=== PATIENT | female | born 1945 | race African-American/Black ===

== ENCOUNTER 2016-09-03 23:17 | Inpatient (IN) | payer MEDICARE, OTHER ==
[~2016-09-03] VITALS: Ht 162.6 cm; Wt 104.8 kg
[2016-09-03 23:30] VITALS: BP 139/94
--- NOTE | 2016-09-03 23:30 | NUR ---
GPS ADMISSION NOTE, RECEIVED PATIENT FROM [facility]. PATIENT ARRIVED ON THIS UNIT A VIA STRETCHER 2 EMT ESCORTS. PATIENT ADMITTED ON A 5150 HOLD FOR GD. PER HOLD PATIENT IS DELUSIONAL, HAS OBSESSIONS WITH OBJECTS, AND CAN NOT IDENTIFY A VIABLE PLAN OF SELF CARE. PATIENT THE 5150 WAS REVIEWED AND THE DOCUMENTATION IN THE 5150 HOLD APPEARS TO REFLECT THE PRESENTATION OF THE PATIENT. UPON FACE TO FACE ASSESSMENT PATIENT IS CURRENTLY LYING IN BED AWAKE, HAS NO S/S OR COMPLAINTS OF PAIN AT THIS TIME. PATIENT IS DISPLAYING NO S/S OF APPARENT DISTRESS. PATIENT BREATHING IS UNLABORED WITH EQUAL RISE AND FALL OF THE CHEST. PATIENT IS ALERT AND ORIENTATED X 2 ON ROOM AIR. PATIENT HAS NO NEEDS AT THIS TIME. PATIENT IS NOTED TO BEING ANXIOUS, DISHEVELED, DISORGANIZED, COOPERATIVE, CONFUSED AT TIMES, GUARDED AND NEEDS REDIRECTION. PATIENT DENIES SUICIDE IDEATIONS AND HOMICIDAL IDEATIONS AT THIS TIME. PATIENT IS UNDER THE PSYCHIATRIC CARE OF DR MORALES AND THE MEDICAL CARE OF DR RAMÍREZ. PATIENT BELONGINGS WERE INVENTORIED AND CHECKED FOR CONTRABAND. ALL CONTRABAND REMOVED AND STORED IN PATIENT HALLWAY LOCKER. PATIENT ADVANCED DIRECTIVES PREFERENCE, IMMUNIZATIONS QUESTIONER, NECESSARY PAPERWORK, AND SKIN ASSESSMENT COMPLETED. PATIENT ORIENTATED TO ROOM, FLOOR, AND STAFF WITH ALL QUESTIONS ANSWERED. PATIENT EDUCATED ON THE USE OF THE CALL PHIPPS. PATIENT BED SIDE RAILS ARE UP X 2 FOR SAFETY. PATIENT BED IS LOCKED, LOW AND I WILL CONTINUE TO MONITOR THIS PATIENT Q 15 MIN WITH THE HELP OF STAFF TO MAINTAIN SAFETY.
[2016-09-04] MEDS ORDERED: LORAZEPAM 0.5 MG TABLET PO PRN
[2016-09-04] MEDS ORDERED: ACETAMINOPHEN 325 MG TABLET PO PRN
[2016-09-04] MEDS ORDERED: MAGNESIUM HYDROXIDE 30 ML UDC PO PRN
[2016-09-04] MEDS ORDERED: ALBU18HF2 INH (00:38)
[2016-09-04] MEDS ORDERED: FURO40TA5 PO (00:38)
[2016-09-04] MEDS ORDERED: TRIA1CAP6 PO (00:38)
[2016-09-04] MEDS ORDERED: ARIP15TA2 PO (00:38)
[2016-09-04] MEDS ORDERED: DIVA500T54 PO (00:38)
[2016-09-04] MEDS ORDERED: DIPH-530 PO (00:41)
[2016-09-04] MEDS ORDERED: CALC-838 PO (00:41)
[2016-09-04] MEDS ORDERED: ALBUTEROL FS 2.5 MG/3 ML VIAL.NEB NEB PRN (01:00)
[2016-09-04] MEDS ORDERED: hydrALAZINE HCL 10 MG TABLET PO PRN (02:00)
[2016-09-04] MEDS ORDERED: ALBUTEROL SULFATE 8 GM HFA.AER.AD NEB PRN (02:00)
[2016-09-04] MEDS ORDERED: Z GUARD REMEDY 2 OZ OINT TP PRN (05:30)
[2016-09-04 06:35] LABS: BASOPHILS % (AUTO) 0.4 % (0.0-2.0); EOSINOPHILS % (AUTO) 0.3 % (0.0-6.0); HEMATOCRIT 35 % (33-45); HEMOGLOBIN 11.5 g/dL (11.5-14.8); LYMPHOCYTES # (AUTO) 1.7 /CMM (0.8-4.8); LYMPHOCYTES % (AUTO) 37.3 % (20.0-44.0); MEAN CORPUSCULAR HEMOGLOBIN 27 PG (26.0-33.0); MEAN CORPUSCULAR HGB CONC 33 g/dl (31.0-36.0); MEAN CORPUSCULAR VOLUME 82 fL (82-100); MONOCYTES # (AUTO) 0.6 /CMM (0.1-1.30); MONOCYTES % (AUTO) 11.9 % (2.0-12.0); NEUTROPHILS # (AUTO) 2.3 /CMM (1.8-8.9); NEUTROPHILS % (AUTO) 50.1 % (43.0-81.0); PLATELET COUNT (AUTO) 206 /CMM (150-450); RED BLOOD CELL COUNT(AUTO) 4.27 MIL/uL (4.0-5.2); WHITE BLOOD COUNT (AUTO) 4.6 K/uL (4.3-11.0)
[2016-09-04 07:41] LABS: ALBUMIN 2.9 g/dL (3.4-5.0); BILIRUBIN,TOTAL 0.3 mg/dL (0.2-1.0); CALCIUM, SERUM 8.7 mg/dL (8.5-10.1); CREATININE 0.9 mg/dL (0.6-1.3); POTASSIUM 3.8 mmol/L (3.5-5.1); TOTAL PROTEIN, SERUM 6.9 g/dL (6.4-8.2)
[2016-09-04 07:43] LABS: CHOLESTEROL 191 mg/dL (<200); HDL CHOLESTEROL 85 mg/dL (40-60); LDL 92 mg/dL (0-99); TRIGLYCERIDES 34 mg/dL (30-150)
[2016-09-04 08:00] VITALS: BP 150/78
[2016-09-04] MEDS: MAG HYDROX/AL HYDROX/SIMETH 30 ML UDC PO PRN ×3 (08:36→21:25)
--- NOTE | 2016-09-04 08:36 | NUR ---
ADMINISTERED MAALOX 30 MG/ML PO PRN FOR ACID REFLUX, CONTINUED MONITORING.
[2016-09-04] MEDS: FUROSEMIDE 40 MG TABLET PO SCH (08:40)
[2016-09-04] MEDS: DIVALPROEX SODIUM 500 MG TABLET.DR PO SCH ×2 (08:41→21:25)
[2016-09-04] MEDS: TRIAMTERENE/HYDROCHLOROTHIAZID (37.5/25MG) 1 UDCAP PO SCH (08:47)
[2016-09-04] MEDS: ARIPIPRAZOLE 5 MG TABLET PO SCH ×2 (12:31→17:12)
[2016-09-04 16:00] VITALS: BP 152/95
--- NOTE | 2016-09-04 17:23 | NUR ---
ADMINISTERED MAALOX 30 MG/ML PO PRN FOR ACID REFLUX, ENCOURAGED TO KEEP HOB ELEVATED, CONTINUED MONITORING. AWARE OF.
[2016-09-04 20:00] VITALS: BP 148/79
[2016-09-04] MEDS ORDERED: ONDANSETRON 4 MG TAB.RAPDIS PO PRN (21:30)
[2016-09-04] MEDS ORDERED: ONDANSETRON 4 MG TAB.RAPDIS ONE (21:33)
--- NOTE | 2016-09-04 21:38 | NUR ---
GPS/RN-PATIENT VOMITED X1,MODERATE AMT.OF UNDIGESTED FOOD.INFORMED DR. RAMÍREZ,SHE ORDERED ZOFRAN 4MG.Q 6HRS,PRN.
[2016-09-05] MEDS: MAG HYDROX/AL HYDROX/SIMETH 30 ML UDC PO PRN ×2 (02:39→06:44)
[2016-09-05 08:00] VITALS: BP 107/66
[2016-09-05] MEDS: ASPIRIN 81 MG TAB.CHEW PO SCH (08:09)
[2016-09-05] MEDS: FUROSEMIDE 40 MG TABLET PO SCH (08:09)
[2016-09-05] MEDS: DIVALPROEX SODIUM 500 MG TABLET.DR PO SCH ×2 (08:10→21:08)
[2016-09-05] MEDS: TRIAMTERENE/HYDROCHLOROTHIAZID (37.5/25MG) 1 UDCAP PO SCH (08:10)
[2016-09-05] MEDS: ARIPIPRAZOLE 5 MG TABLET PO SCH ×2 (08:10→21:09)
[2016-09-05] MEDS: PANTOPRAZOLE 40 MG TABLET.DR PO SCH (08:11)
[2016-09-05 15:44] VITALS: BP 131/85
[2016-09-05 19:52] VITALS: BP 109/55
[2016-09-05] MEDS: TEMAZEPAM 7.5 MG CAPSULE PO PRN (21:09)
[2016-09-06 08:00] VITALS: BP 113/55
[2016-09-06] MEDS: TRIAMTERENE/HYDROCHLOROTHIAZID (37.5/25MG) 1 UDCAP PO SCH (08:24)
[2016-09-06] MEDS: FUROSEMIDE 40 MG TABLET PO SCH (08:24)
[2016-09-06] MEDS: PANTOPRAZOLE 40 MG TABLET.DR PO SCH (08:24)
[2016-09-06] MEDS: ARIPIPRAZOLE 5 MG TABLET PO SCH ×3 (08:25→20:29)
[2016-09-06] MEDS: DIVALPROEX SODIUM 500 MG TABLET.DR PO SCH ×2 (08:25→20:30)
[2016-09-06] MEDS: ASPIRIN 81 MG TAB.CHEW PO SCH (08:25)
--- NOTE | 2016-09-06 15:03 | NUR ---
Initial Discharge Plan: Patient lives at home with her sister [address] [place] [address]. Per patient, she plans to continue living with her sister. Route Sales Manager spoke with patient's sister Brittny Flores ([phone]) who confirmed that patient lives with her and that she takes care of her. Patient's sister stated that she can possibly get someone to pick her up when patient is ready for discharge or she may need transportation. Route Sales Manager will follow-up with MD, patient, and patient's family for most appropriate discharge and will help form safe and proper discharge.
[2016-09-06 16:00] VITALS: BP 103/72
[2016-09-06 19:37] VITALS: BP 93/51
[2016-09-06] MEDS: TEMAZEPAM 7.5 MG CAPSULE PO PRN (20:30)
[2016-09-07] MEDS: MAG HYDROX/AL HYDROX/SIMETH 30 ML UDC PO PRN (04:31)
[2016-09-07 08:00] VITALS: BP 105/68
[2016-09-07] MEDS: ASPIRIN 81 MG TAB.CHEW PO SCH (08:18)
[2016-09-07] MEDS: DIVALPROEX SODIUM 500 MG TABLET.DR PO SCH ×2 (08:18→21:05)
[2016-09-07] MEDS: TRIAMTERENE/HYDROCHLOROTHIAZID (37.5/25MG) 1 UDCAP PO SCH (08:18)
[2016-09-07] MEDS: PANTOPRAZOLE 40 MG TABLET.DR PO SCH (08:18)
[2016-09-07] MEDS: FUROSEMIDE 40 MG TABLET PO SCH (08:18)
[2016-09-07] MEDS: ARIPIPRAZOLE 5 MG TABLET PO SCH ×2 (08:19→13:00)
--- NOTE | 2016-09-07 08:47 | NUR ---
Reviewed psychosocial assessment and concur. Addendum: 09/07/16 at 0848 by JULY RODRIGUEZ Amended: Links added.
[2016-09-07 15:13] VITALS: BP 117/58
[2016-09-07] MEDS ORDERED: ARIPIPRAZOLE 5 MG TABLET PO SCH (20:00)
[2016-09-07 20:04] VITALS: BP 99/59
[2016-09-07] MEDS: TEMAZEPAM 7.5 MG CAPSULE PO PRN (21:05)
[2016-09-08] MEDS: PANTOPRAZOLE 40 MG TABLET.DR PO SCH ×2 (07:30→08:54)
[2016-09-08 08:00] VITALS: BP 117/79
[2016-09-08] MEDS: ARIPIPRAZOLE 5 MG TABLET PO SCH ×4 (08:00→21:01)
[2016-09-08] MEDS: TRIAMTERENE/HYDROCHLOROTHIAZID (37.5/25MG) 1 UDCAP PO SCH ×2 (08:43→08:53)
[2016-09-08] MEDS: ASPIRIN 81 MG TAB.CHEW PO SCH ×2 (08:43→08:53)
[2016-09-08] MEDS: DIVALPROEX SODIUM 500 MG TABLET.DR PO SCH ×3 (08:43→21:01)
[2016-09-08] MEDS: FUROSEMIDE 40 MG TABLET PO SCH ×2 (08:44→08:54)
[2016-09-08] MEDS: MAG HYDROX/AL HYDROX/SIMETH 30 ML UDC PO PRN (08:56)
[2016-09-08 16:00] VITALS: BP 113/72
[2016-09-08] MEDS ORDERED: ARIPIPRAZOLE 5 MG TABLET PO SCH (20:00)
[2016-09-08 20:45] VITALS: BP 111/74
[2016-09-09] MEDS: PANTOPRAZOLE 40 MG TABLET.DR PO SCH (07:56)
[2016-09-09] MEDS: ARIPIPRAZOLE 5 MG TABLET PO SCH ×3 (07:57→19:21)
[2016-09-09] MEDS: ASPIRIN 81 MG TAB.CHEW PO SCH (08:00)
[2016-09-09] MEDS: DIVALPROEX SODIUM 500 MG TABLET.DR PO SCH ×2 (08:00→20:08)
[2016-09-09] MEDS: FUROSEMIDE 40 MG TABLET PO SCH (08:01)
[2016-09-09] MEDS: TRIAMTERENE/HYDROCHLOROTHIAZID (37.5/25MG) 1 UDCAP PO SCH (08:01)
[2016-09-09 08:10] VITALS: BP 102/60
--- NOTE | 2016-09-09 12:17 | NUR ---
MICHAEL spoke with pt's sister, Brittny Flores ([phone]) and she will sampler pickup the patient at 1:00PM tomorrow.
[2016-09-09 15:49] VITALS: BP 102/69
--- NOTE | 2016-09-09 19:13 | NUR ---
GPS/RN NOTE: PATIENT RESTING IN BED, NO APPARENT DISTRESS NOTED.
[2016-09-09 20:00] VITALS: BP 106/59
[2016-09-10 08:03] VITALS: BP 104/74
[2016-09-10 09:03] VITALS: BP 104/74
[2016-09-10] MEDS: PANTOPRAZOLE 40 MG TABLET.DR PO SCH (09:03)
[2016-09-10] MEDS: TRIAMTERENE/HYDROCHLOROTHIAZID (37.5/25MG) 1 UDCAP PO SCH (09:03)
[2016-09-10] MEDS: ASPIRIN 81 MG TAB.CHEW PO SCH (09:03)
[2016-09-10] MEDS: ARIPIPRAZOLE 5 MG TABLET PO SCH ×2 (09:04→12:04)
[2016-09-10] MEDS: DIVALPROEX SODIUM 500 MG TABLET.DR PO SCH (09:04)
[2016-09-10] MEDS: FUROSEMIDE 40 MG TABLET PO SCH (09:04)
--- NOTE | 2016-09-10 12:28 | NUR ---
SW spoke with pt's sister, Brittny Flores ([phone]) and she agreed to seed cone picker the patient today at 1:00PM.
--- NOTE | 2016-09-10 13:30 | NUR ---
GPS/RN PT LEFT WITH HER SISTER ADDIE LORENZANA VIA PRIVATE CAR. PRESCRIPTIONS GIVEN AND UNDERSTOOD NO SI OR HI AT THE TIME OF D/C. ID BAND REMOVED , PROPERTY RETURNED. PT REFUSED PICTURES ON DISCHARGE AND REFUSED TO SIGN D/C PAPERWORK WELL.
--- NOTE | 2016-09-10 14:07 | NUR ---
Discharge Note: Patient was discharged home [address] [place] [address]. Patient's sister Brittny Flores ([phone]) was notified and picked up patient via private vehicle. Patient and patient's sister were agreeable with the discharge plan. Patient's mood and affect were appropriate upon discharge. Patient left with no distress. Patient denied suicidal and homicidal ideations. optical worker provided patient referrals to the [facility] [address] [place] [address] . Patient and patient's sister agreed to follow-up with a psychiatrist within 30 days. Facilitated info to IDT team who are in agreement with discharge arrangement. The multidisciplinary exitcare form was done, printed, signed, and given to the patient.
== END 2016-09-10 13:30 | disposition home or self-care (01) | DRG 885 ==
LOC: GPS 23:17
PROVIDERS: ADMIT Psychiatry & Neurology Psychosomatic Medicine; ATTEND Internal Medicine
DX: F25.0 Schizoaffective disorder, bipolar type (principal); F01.50 Vascular dementia, unspecified severity, without behavioral disturbance, psychotic disturbance, mood disturbance, and anxiety; Z86.73 Personal history of transient ischemic attack (TIA), and cerebral infarction without residual deficits; G40.909 Epilepsy, unspecified, not intractable, without status epilepticus; J45.909 Unspecified asthma, uncomplicated; K21.9 Gastro-esophageal reflux disease without esophagitis; I10 Essential (primary) hypertension; K44.9 Diaphragmatic hernia without obstruction or gangrene; E78.5 Hyperlipidemia, unspecified; F29 Unspecified psychosis not due to a substance or known physiological condition; Z73.6 Limitation of activities due to disability; F32.9 Major depressive disorder, single episode, unspecified; E66.9 Obesity, unspecified; Z68.39 Body mass index [BMI] 39.0-39.9, adult
CPT/HCPCS: 36415; 74230-TC; 80053-TC; 80061-TC; 85025-TC; 87081-TC; Q0162

== ENCOUNTER 2016-11-19 17:08 | Inpatient (IN) | payer MEDICARE, OTHER ==
[~2016-11-19] VITALS: Ht 167.6 cm; Wt 100.7 kg
[~2016-11-19 17:08] MED LIST: ALBU18HF2 INH; ARIP15TA2 PO; CALC-838 PO; DIPH-530 PO; DIVA500T54 PO; FURO40TA5 PO; TRIA1CAP6 PO
[2016-11-20 01:45] VITALS: BP 114/78
[2016-11-20] MEDS ORDERED: MAGNESIUM HYDROXIDE 30 ML UDC PO PRN (02:00)
[2016-11-20] MEDS ORDERED: LORAZEPAM 0.5 MG TABLET PO PRN (02:00)
[2016-11-20] MEDS ORDERED: ACETAMINOPHEN 325 MG TABLET PO PRN (02:00)
[2016-11-20] MEDS ORDERED: TEMAZEPAM 7.5 MG CAPSULE PO PRN (02:00)
[2016-11-20 03:06] VITALS: BP 114/78
[2016-11-20] MEDS ORDERED: ALBUTEROL SULFATE 8 GM HFA.AER.AD IH SCH (04:30)
[2016-11-20 07:05] LABS: CHOLESTEROL 184 mg/dL (<200); HDL CHOLESTEROL 63 mg/dL (40-60); LDL 96 mg/dL (0-99); TRIGLYCERIDES 46 mg/dL (30-150)
[2016-11-20 08:00] VITALS: BP 112/62
[2016-11-20] MEDS ORDERED: ALBUTEROL FS 2.5 MG/3 ML VIAL.NEB NEB PRN (08:00)
[2016-11-20] MEDS: CALCIUM CARB 250MG /VITAMIN D 1 UDTAB PO SCH (08:18)
[2016-11-20] MEDS: TRIAMTERENE/HYDROCHLOROTHIAZID (37.5/25MG) 1 UDCAP PO SCH (08:27)
[2016-11-20] MEDS: FUROSEMIDE 40 MG TABLET PO SCH (08:28)
[2016-11-20] MEDS: DIVALPROEX SODIUM 500 MG TABLET.DR PO SCH ×2 (08:58→21:34)
[2016-11-20 16:24] VITALS: BP 126/85
[2016-11-20] MEDS: ARIPIPRAZOLE 5 MG TABLET PO SCH (16:57)
[2016-11-20] MEDS: BENZTROPINE MESYLATE (1 MG) 1 MG TABLET PO SCH (16:57)
[2016-11-20 20:00] VITALS: BP 125/45
[2016-11-20] MEDS: MAG HYDROX/AL HYDROX/SIMETH 30 ML UDC PO PRN (21:34)
[2016-11-20] MEDS: diphenhydrAMINE HCL 25 MG CAPSULE PO SCH (21:38)
[2016-11-20] MEDS ORDERED: ONDANSETRON 4 MG TAB.RAPDIS PO PRN (22:30)
[2016-11-21] MEDS ORDERED: OMEP40CA37 PO (04:38)
[2016-11-21] MEDS: ARIPIPRAZOLE 5 MG TABLET PO SCH ×2 (09:00→16:24)
[2016-11-21] MEDS: BENZTROPINE MESYLATE (1 MG) 1 MG TABLET PO SCH ×2 (09:00→16:24)
[2016-11-21] MEDS: DIVALPROEX SODIUM 500 MG TABLET.DR PO SCH ×2 (09:08→21:00)
[2016-11-21] MEDS: TRIAMTERENE/HYDROCHLOROTHIAZID (37.5/25MG) 1 UDCAP PO SCH (09:10)
[2016-11-21] MEDS: FUROSEMIDE 40 MG TABLET PO SCH (09:11)
[2016-11-21] MEDS: CALCIUM CARB 250MG /VITAMIN D 1 UDTAB PO SCH (09:12)
[2016-11-21 09:15] VITALS: BP 126/74
[2016-11-21] MEDS: PANTOPRAZOLE 40 MG TABLET.DR PO SCH (10:50)
[2016-11-21 16:21] VITALS: BP 126/75
[2016-11-21] MEDS: diphenhydrAMINE HCL 25 MG CAPSULE PO SCH (21:39)
[2016-11-22] MEDS: PANTOPRAZOLE 40 MG TABLET.DR PO SCH (07:30)
[2016-11-22] MEDS: ARIPIPRAZOLE 5 MG TABLET PO SCH ×2 (08:18→17:00)
[2016-11-22] MEDS: TRIAMTERENE/HYDROCHLOROTHIAZID (37.5/25MG) 1 UDCAP PO SCH (08:18)
[2016-11-22] MEDS: FUROSEMIDE 40 MG TABLET PO SCH (08:18)
[2016-11-22] MEDS: DIVALPROEX SODIUM 500 MG TABLET.DR PO SCH ×2 (08:18→21:00)
[2016-11-22] MEDS: CALCIUM CARB 250MG /VITAMIN D 1 UDTAB PO SCH (08:18)
[2016-11-22] MEDS: BENZTROPINE MESYLATE (1 MG) 1 MG TABLET PO SCH ×2 (08:18→17:00)
[2016-11-22 14:44] LABS: BASOPHILS # (AUTO) 0.1 /CMM (0.0-0.2); BASOPHILS % (AUTO) 0.8 % (0.0-2.0); EOSINOPHILS % (AUTO) 0.4 % (0.0-6.0); HEMATOCRIT 45 % (33-45); HEMOGLOBIN 14.8 g/dL (11.5-14.8); LYMPHOCYTES # (AUTO) 2.3 /CMM (0.8-4.8); LYMPHOCYTES % (AUTO) 38.1 % (20.0-44.0); MEAN CORPUSCULAR HEMOGLOBIN 27 PG (26.0-33.0); MEAN CORPUSCULAR HGB CONC 33 g/dl (31.0-36.0); MEAN CORPUSCULAR VOLUME 83 fL (82-100); MONOCYTES # (AUTO) 0.7 /CMM (0.1-1.30); NEUTROPHILS % (AUTO) 49.7 % (43.0-81.0); PLATELET COUNT (AUTO) 191 /CMM (150-450); RDW COEFFICIENT OF VARIATION 16.1 (11.5-15.0); RED BLOOD CELL COUNT(AUTO) 5.43 MIL/uL (4.0-5.2)
[2016-11-22 14:56] LABS: CALCIUM, SERUM 9.2 mg/dL (8.5-10.1); CARBON DIOXIDE 31 mmol/L (21-32); CHLORIDE 99 mmol/L (98-107); CREATININE 1.2 mg/dL (0.6-1.3); GLUCOSE 96 mg/dL (74-106); POTASSIUM 3.6 mmol/L (3.5-5.1); SODIUM SERUM 141 mmol/L (136-145); UREA NITROGEN, BLOOD 14 mg/dL (7-18)
[2016-11-22] MEDS: diphenhydrAMINE HCL 25 MG CAPSULE PO SCH (22:00)
[2016-11-23] MEDS: PANTOPRAZOLE 40 MG TABLET.DR PO SCH (07:30)
[2016-11-23 08:00] VITALS: BP 124/66
[2016-11-23] MEDS: ARIPIPRAZOLE 5 MG TABLET PO SCH ×2 (08:19→16:37)
[2016-11-23] MEDS: BENZTROPINE MESYLATE (1 MG) 1 MG TABLET PO SCH ×2 (08:19→16:37)
[2016-11-23] MEDS: TRIAMTERENE/HYDROCHLOROTHIAZID (37.5/25MG) 1 UDCAP PO SCH (08:19)
[2016-11-23] MEDS: DIVALPROEX SODIUM 500 MG TABLET.DR PO SCH ×2 (08:19→21:00)
[2016-11-23] MEDS: CALCIUM CARB 250MG /VITAMIN D 1 UDTAB PO SCH (08:20)
[2016-11-23] MEDS: FUROSEMIDE 40 MG TABLET PO SCH (08:20)
[2016-11-23 16:00] VITALS: BP 108/68
[2016-11-23] MEDS ORDERED: ARIPIPRAZOLE 5 MG TABLET PO ONE (18:30)
[2016-11-23] MEDS ORDERED: BENZTROPINE MESYLATE (1 MG) 1 MG TABLET PO ONE (18:30)
[2016-11-23] MEDS ORDERED: DIVALPROEX SODIUM 500 MG TABLET.DR PO ONE (18:30)
[2016-11-23] MEDS ORDERED: PANTOPRAZOLE 40 MG TABLET.DR PO ONE (19:00)
[2016-11-23] MEDS: diphenhydrAMINE HCL 25 MG CAPSULE PO SCH (22:00)
[2016-11-24] MEDS: PANTOPRAZOLE 40 MG TABLET.DR PO SCH (07:30)
[2016-11-24 08:00] VITALS: BP 108/70
[2016-11-24] MEDS: DIVALPROEX SODIUM 500 MG TABLET.DR PO SCH ×2 (09:00→21:00)
[2016-11-24] MEDS: TRIAMTERENE/HYDROCHLOROTHIAZID (37.5/25MG) 1 UDCAP PO SCH (09:00)
[2016-11-24] MEDS: ARIPIPRAZOLE 5 MG TABLET PO SCH ×2 (09:00→17:00)
[2016-11-24] MEDS: FUROSEMIDE 40 MG TABLET PO SCH (09:00)
[2016-11-24] MEDS: BENZTROPINE MESYLATE (1 MG) 1 MG TABLET PO SCH ×2 (09:00→17:00)
[2016-11-24] MEDS: CALCIUM CARB 250MG /VITAMIN D 1 UDTAB PO SCH (09:00)
[2016-11-24 16:00] VITALS: BP 137/71
[2016-11-24] MEDS: diphenhydrAMINE HCL 25 MG CAPSULE PO SCH (21:18)
[2016-11-25] MEDS: PANTOPRAZOLE 40 MG TABLET.DR PO SCH (07:30)
[2016-11-25 08:00] VITALS: BP 119/79
[2016-11-25] MEDS: BENZTROPINE MESYLATE (1 MG) 1 MG TABLET PO SCH ×2 (08:55→16:52)
[2016-11-25] MEDS: ARIPIPRAZOLE 5 MG TABLET PO SCH ×2 (08:55→16:52)
[2016-11-25] MEDS: DIVALPROEX SODIUM 500 MG TABLET.DR PO SCH ×2 (08:55→21:54)
[2016-11-25] MEDS: FUROSEMIDE 40 MG TABLET PO SCH (08:56)
[2016-11-25] MEDS: TRIAMTERENE/HYDROCHLOROTHIAZID (37.5/25MG) 1 UDCAP PO SCH (08:56)
[2016-11-25] MEDS: CALCIUM CARB 250MG /VITAMIN D 1 UDTAB PO SCH (08:57)
[2016-11-25] MEDS: MAG HYDROX/AL HYDROX/SIMETH 30 ML UDC PO PRN (16:00)
[2016-11-25 16:26] VITALS: BP 115/84
[2016-11-25 20:00] VITALS: BP 130/79
[2016-11-25] MEDS: diphenhydrAMINE HCL 25 MG CAPSULE PO SCH (21:54)
[2016-11-26] MEDS: PANTOPRAZOLE 40 MG TABLET.DR PO SCH (07:30)
[2016-11-26 08:00] VITALS: BP 114/67
[2016-11-26] MEDS: DIVALPROEX SODIUM 500 MG TABLET.DR PO SCH ×2 (09:18→21:44)
[2016-11-26] MEDS: TRIAMTERENE/HYDROCHLOROTHIAZID (37.5/25MG) 1 UDCAP PO SCH (09:18)
[2016-11-26] MEDS: ARIPIPRAZOLE 5 MG TABLET PO SCH ×2 (09:18→16:41)
[2016-11-26] MEDS: CALCIUM CARB 250MG /VITAMIN D 1 UDTAB PO SCH (09:18)
[2016-11-26] MEDS: BENZTROPINE MESYLATE (1 MG) 1 MG TABLET PO SCH ×2 (09:19→16:41)
[2016-11-26] MEDS: FUROSEMIDE 40 MG TABLET PO SCH (10:35)
[2016-11-26 16:35] VITALS: BP 117/83
[2016-11-26] MEDS: BENZTROPINE MESYLATE (2MG/2ML) 2 MG/2 ML AMPUL IM PRN (16:43)
[2016-11-26] MEDS: HALOPERIDOL LACTATE INJ 5 MG/ML VIAL IM PRN (16:44)
[2016-11-26 20:00] VITALS: BP 131/74
[2016-11-26] MEDS: diphenhydrAMINE HCL 25 MG CAPSULE PO SCH (21:47)
[2016-11-27] MEDS: PANTOPRAZOLE 40 MG TABLET.DR PO SCH (07:30)
[2016-11-27 08:54] VITALS: BP 120/69
[2016-11-27] MEDS: DIVALPROEX SODIUM 500 MG TABLET.DR PO SCH ×2 (09:07→21:51)
[2016-11-27] MEDS: FUROSEMIDE 40 MG TABLET PO SCH (09:07)
[2016-11-27] MEDS: TRIAMTERENE/HYDROCHLOROTHIAZID (37.5/25MG) 1 UDCAP PO SCH (09:08)
[2016-11-27] MEDS: ARIPIPRAZOLE 5 MG TABLET PO SCH ×2 (09:08→16:25)
[2016-11-27] MEDS: BENZTROPINE MESYLATE (1 MG) 1 MG TABLET PO SCH ×2 (09:08→16:24)
[2016-11-27] MEDS: CALCIUM CARB 250MG /VITAMIN D 1 UDTAB PO SCH (09:08)
[2016-11-27 20:00] VITALS: BP 102/55
[2016-11-27] MEDS: diphenhydrAMINE HCL 25 MG CAPSULE PO SCH (21:51)
[2016-11-28] MEDS: PANTOPRAZOLE 40 MG TABLET.DR PO SCH (07:30)
[2016-11-28 08:14] VITALS: BP 118/65
[2016-11-28] MEDS: ARIPIPRAZOLE 5 MG TABLET PO SCH ×2 (08:32→16:28)
[2016-11-28] MEDS: BENZTROPINE MESYLATE (1 MG) 1 MG TABLET PO SCH ×2 (08:32→16:30)
[2016-11-28] MEDS: DIVALPROEX SODIUM 500 MG TABLET.DR PO SCH ×2 (08:32→21:48)
[2016-11-28] MEDS: TRIAMTERENE/HYDROCHLOROTHIAZID (37.5/25MG) 1 UDCAP PO SCH (08:33)
[2016-11-28] MEDS: CALCIUM CARB 250MG /VITAMIN D 1 UDTAB PO SCH (08:33)
[2016-11-28] MEDS: FUROSEMIDE 40 MG TABLET PO SCH (08:33)
[2016-11-28] MEDS: HALOPERIDOL LACTATE INJ 5 MG/ML VIAL IM PRN (08:39)
[2016-11-28] MEDS: BENZTROPINE MESYLATE (2MG/2ML) 2 MG/2 ML AMPUL IM PRN (08:41)
[2016-11-28 15:22] VITALS: BP 105/84
[2016-11-28 19:29] VITALS: BP 132/93
[2016-11-28] MEDS: diphenhydrAMINE HCL 25 MG CAPSULE PO SCH (21:49)
[2016-11-29] MEDS: PANTOPRAZOLE 40 MG TABLET.DR PO SCH (07:30)
[2016-11-29 08:00] VITALS: BP 113/69
[2016-11-29] MEDS: TRIAMTERENE/HYDROCHLOROTHIAZID (37.5/25MG) 1 UDCAP PO SCH (08:25)
[2016-11-29] MEDS: CALCIUM CARB 250MG /VITAMIN D 1 UDTAB PO SCH (08:25)
[2016-11-29] MEDS: FUROSEMIDE 40 MG TABLET PO SCH (08:25)
[2016-11-29] MEDS: BENZTROPINE MESYLATE (1 MG) 1 MG TABLET PO SCH ×2 (08:25→16:31)
[2016-11-29] MEDS: ARIPIPRAZOLE 5 MG TABLET PO SCH ×2 (08:25→16:31)
[2016-11-29] MEDS: DIVALPROEX SODIUM 500 MG TABLET.DR PO SCH ×2 (08:25→21:02)
[2016-11-29] MEDS: HALOPERIDOL LACTATE INJ 5 MG/ML VIAL IM PRN (08:32)
[2016-11-29] MEDS: BENZTROPINE MESYLATE (2MG/2ML) 2 MG/2 ML AMPUL IM PRN (08:32)
[2016-11-29 16:00] VITALS: BP 137/68
[2016-11-29] MEDS ORDERED: HALOPERIDOL DECANOATE IM 100 MG/ML AMPUL IM ONE (16:00)
[2016-11-29 19:37] VITALS: BP 106/78
[2016-11-29] MEDS: diphenhydrAMINE HCL 25 MG CAPSULE PO SCH (21:01)
[2016-11-30] MEDS: PANTOPRAZOLE 40 MG TABLET.DR PO SCH (07:30)
[2016-11-30 08:00] VITALS: BP 112/76
[2016-11-30] MEDS: ARIPIPRAZOLE 5 MG TABLET PO SCH ×2 (08:07→16:34)
[2016-11-30] MEDS: TRIAMTERENE/HYDROCHLOROTHIAZID (37.5/25MG) 1 UDCAP PO SCH (08:07)
[2016-11-30] MEDS: DIVALPROEX SODIUM 500 MG TABLET.DR PO SCH ×2 (08:07→20:50)
[2016-11-30] MEDS: BENZTROPINE MESYLATE (1 MG) 1 MG TABLET PO SCH ×2 (08:07→16:34)
[2016-11-30] MEDS: CALCIUM CARB 250MG /VITAMIN D 1 UDTAB PO SCH (08:08)
[2016-11-30] MEDS: FUROSEMIDE 40 MG TABLET PO SCH (08:08)
[2016-11-30] MEDS: HALOPERIDOL LACTATE INJ 5 MG/ML VIAL IM PRN (08:33)
[2016-11-30] MEDS: BENZTROPINE MESYLATE (2MG/2ML) 2 MG/2 ML AMPUL IM PRN (08:33)
[2016-11-30 16:00] VITALS: BP 110/71
[2016-11-30 20:54] VITALS: BP 126/58
[2016-11-30] MEDS: diphenhydrAMINE HCL 25 MG CAPSULE PO SCH (21:09)
[2016-12-01 08:00] VITALS: BP 106/57
[2016-12-01] MEDS: PANTOPRAZOLE 40 MG TABLET.DR PO SCH (08:06)
[2016-12-01] MEDS: CALCIUM CARB 250MG /VITAMIN D 1 UDTAB PO SCH (08:19)
[2016-12-01] MEDS: ARIPIPRAZOLE 5 MG TABLET PO SCH (08:19)
[2016-12-01] MEDS: BENZTROPINE MESYLATE (1 MG) 1 MG TABLET PO SCH (08:20)
[2016-12-01] MEDS: DIVALPROEX SODIUM 500 MG TABLET.DR PO SCH (08:20)
[2016-12-01 08:21] VITALS: BP 106/57
[2016-12-01] MEDS: FUROSEMIDE 40 MG TABLET PO SCH (08:21)
[2016-12-01] MEDS: TRIAMTERENE/HYDROCHLOROTHIAZID (37.5/25MG) 1 UDCAP PO SCH (08:21)
== END 2016-12-01 13:30 | disposition home or self-care (01) | DRG 885 ==
LOC: GPS 11-20 01:34
PROVIDERS: ADMIT Psychiatry & Neurology Psychosomatic Medicine; ATTEND Internal Medicine
DX: F25.0 Schizoaffective disorder, bipolar type (principal); F23 Brief psychotic disorder; E78.5 Hyperlipidemia, unspecified; F32.9 Major depressive disorder, single episode, unspecified; I10 Essential (primary) hypertension; K21.9 Gastro-esophageal reflux disease without esophagitis; I25.10 Atherosclerotic heart disease of native coronary artery without angina pectoris; F03.90 Unspecified dementia, unspecified severity, without behavioral disturbance, psychotic disturbance, mood disturbance, and anxiety; Z88.0 Allergy status to penicillin; R56.9 Unspecified convulsions
CPT/HCPCS: 36415; 80048-TC; 80061-TC; 85025-TC; 87081-TC; J0515; J1630; J1631; Q0162; Q0163; Z7610